=== PATIENT | male | born 1960 | race Caucasian/White ===

== ENCOUNTER → 2018-06-05 08:58 | Outpatient (CLI) | payer OTHER, SELFPAY ==
--- NOTE | 2018-06-05 | DI.MRI.S_ITS ---
PROCEDURE: MR LOWER LEG RT WO/W CON INDICATIONS: RIGHT CALF PAIN TECHNIQUE: Noncontrast coronal T1 spin echo and STIR, sagittal T1 spin echo with fat saturation and STIR, axial T1 spin echo and T2 fast spin echo with fat saturation. After the administration of contrast, axial/sagittal/coronal T1 spin echo with fat saturation through the right tibia/fibula. COMPARISON: None. FINDINGS: Image quality: Excellent. Bones: The visualized bone marrow demonstrates normal signal on all sequences. The overlying cortex appears intact. No abnormal intraosseous enhancement. Soft tissues: Anterior subcutaneous cellulitis and there is T2 hyperintensity and mild enhancement involving the anteromedial tibial diaphyseal periosteum. Hernandez cyst is seen in the popliteal fossa. There is also subfascial and inter-muscular edema/fluid inferiorly along with a multiloculated cystic appearing T2 hyperintense focus measuring 2.3 x 2.5 cm on axial image 17 series 7, seen within the medial gastrocnemius muscle. Unclear if this is in continuity with the Hernandez's cyst. There is surrounding rim enhancement which is similar appearance to the Hernandez's cyst Of note on large [id number] images, there are similar prominent presumed Hernandez's cyst and upper calf fluid collections on the left. IMPRESSION: Ill-defined, intramuscular fluid collection within the medial gastrocnemius muscle, with surrounding subfascial and inter-muscular edema. This could represent intramuscular abscess, versus hematoma (bland or infected). This may be in continuity with a Hernandez cyst seen in the popliteal fossa. Of note, there are similar-appearing rim enhancing fluid collections seen within the upper left calf on large [id number] images. Please correlate clinically. Anteromedial tibial periosteal edema and mild enhancement, with overlying subcutaneous cellulitis. This raises the possibility of barlow splints (anteromedial tibial stress syndrome). Please correlate with point tenderness. Dictated by: Michele Kelley M.D. on 06/05/2018 at 11:21 Approved by: Michele Kelley M.D. on 06/05/2018 at 11:31
== END ==
PROVIDERS: Visit Provider Nurse Practitioner
DX: M79.661 Pain in right lower leg (principal); M71.21 Synovial cyst of popliteal space [Baker], right knee; L03.115 Cellulitis of right lower limb
CPT/HCPCS: 73720

== ENCOUNTER → 2018-08-10 07:47 | Outpatient (CLI) | payer OTHER, SELFPAY ==
--- NOTE | 2018-08-10 | DI.MRI.S_ITS ---
PROCEDURE: MR KNEE LT WO CON INDICATIONS: BILATERAL KNEE PAIN TECHNIQUE: Noncontrast sagittal PD fast spin echo and T2 fast spin echo with fat saturation, sagittal 3-D FLASH with fat saturation; coronal T1 spin echo and PD fast spin echo with fat saturation, and axial PD fast spin echo with fat saturation through the knee. COMPARISON: [facility], MR, MR KNEE RT WO CON, 08/10/2018, 8:03. FINDINGS: Image quality: Excellent. Menisci: The medial and lateral menisci demonstrate normal morphology and internal signal. The meniscal root ligaments appear intact. Cruciate ligaments: The anterior and posterior cruciate ligaments appear intact. Medial structures: The medial collateral ligament appears intact. The posterior oblique ligament, semimembranosus tendon insertions, oblique popliteal ligament, and meniscocapsular junction appear intact. Visualized portions of the pes anserinus tendons appear normal. No abnormal bursal fluid. Lateral structures: The lateral collateral ligament, long and short heads of the biceps femoris tendon appear intact. The popliteus tendon appears normal; the popliteofibular ligament appears intact. The posterosuperior and anteroinferior popliteomeniscal fascicles appear intact. The arcuate and fabellofibular ligaments appear intact, on either side of the lateral inferior geniculate artery. Iliotibial band appears normal. Anterior structures: The quadriceps and patellar tendons appear intact. Patellar alignment is normal. No femoral trochlear dysplasia or ventral trochlear prominence. No edema in the infrapatellar fat pad. Bones and cartilage: Mild tricompartment osteoarthritis is seen most prominent in patellofemoral compartment. There is chondromalacia patella involving apex and lateral facet of patella cartilage. Articulating cartilage is a medial and lateral femoral tibial compartments are grossly intact. Joint space: There is small amount of joint fluid, no gross loose body. 2.5 x 1.4 x 4.7 cm irregular appearing popliteal cyst is seen with internal hypoechoic signal, likely representing a ruptured popliteal cyst. Normal appearing synovial plicae are incidentally noted. IMPRESSION: 1. 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 No fracture or dislocation. 2. Small amount of joint effusion. Irregular appearing popliteal cyst as above, likely represent a ruptured popliteal cyst. 3. No evidence of focal meniscal tear. Cruciate ligaments are intact. Dictated by: Yuniel Stone M.D. on 08/10/2018 at 12:18 Approved by: Yuniel Stone M.D. on 08/10/2018 at 12:24
--- NOTE | 2018-08-10 | DI.MRI.S_ITS ---
PROCEDURE: MR KNEE RT WO CON INDICATIONS: BILATERAL KNEE PAIN TECHNIQUE: Noncontrast sagittal PD fast spin echo and T2 fast spin echo with fat saturation, sagittal 3-D FLASH with fat saturation; coronal T1 spin echo and PD fast spin echo with fat saturation, and axial PD fast spin echo with fat saturation through the knee. COMPARISON: None. FINDINGS: Image quality: Excellent. Menisci: The medial and lateral menisci demonstrate normal morphology and internal signal. The meniscal root ligaments appear intact. Cruciate ligaments: The anterior and posterior cruciate ligaments appear intact. Medial structures: The medial collateral ligament appears intact. The posterior oblique ligament, semimembranosus tendon insertions, oblique popliteal ligament, and meniscocapsular junction appear intact. Visualized portions of the pes anserinus tendons appear normal. No abnormal bursal fluid. Lateral structures: The lateral collateral ligament, long and short heads of the biceps femoris tendon appear intact. The popliteus tendon appears normal; the popliteofibular ligament appears intact. The posterosuperior and anteroinferior popliteomeniscal fascicles appear intact. The arcuate and fabellofibular ligaments appear intact, on either side of the lateral inferior geniculate artery. Iliotibial band appears normal. Anterior structures: The quadriceps and patellar tendons appear intact. Patellar alignment is normal. No femoral trochlear dysplasia or ventral trochlear prominence. No edema in the infrapatellar fat pad. Bones and cartilage: There is mild tricompartment osteoarthritis. No marrow edema. No fracture or dislocation. Articulating cartilage is a medial and lateral femoral tibial compartments are grossly intact. Low-grade chondromalacia patella involving medial facet of patella cartilage is seen. Joint space: There is small to moderate amount of joint effusion. No gross loose body. 3.2 x 1.8 x 4.3 cm complex appearing popliteal cyst is noted with internal hypointense signal suggestive of hemorrhagic cyst. Normal appearing synovial plicae are incidentally noted. IMPRESSION: 1. Mild tricompartment osteoarthritis. Low-grade chondromalacia patella involving the medial facet of patella cartilage. No erythema. No fracture or dislocation. 2. Complex appearing popliteal cyst as described above with internal hypointense signal which may represent internal hemorrhage. 3. No evidence of focal meniscal tear. Cruciate ligaments are intact. Dictated by: Yuniel Stone M.D. on 08/10/2018 at 10:03 Approved by: Yuniel Stone M.D. on 08/10/2018 at 10:31
== END ==
PROVIDERS: Visit Provider Orthopaedic Surgery
DX: M17.0 Bilateral primary osteoarthritis of knee (principal); M25.562 Pain in left knee; M25.561 Pain in right knee; M22.42 Chondromalacia patellae, left knee; M25.462 Effusion, left knee; M22.41 Chondromalacia patellae, right knee; M71.22 Synovial cyst of popliteal space [Baker], left knee; M71.21 Synovial cyst of popliteal space [Baker], right knee
CPT/HCPCS: 73721

== ENCOUNTER → 2019-01-13 15:32 | Outpatient (CLI) | payer OTHER, SELFPAY ==
[2019-01-13 18:02] LABS: Hepatitis B Surface Antigen NEGATIVE s/c (NEGATIVE)
[2019-01-13 18:13] LABS: HIV 1 and 2 Antibody NEGATIVE (NEGATIVE)
[2019-01-15 14:29] LABS: Hepatitis B Core Antibody Nonreactive (Nonreactive)
[2019-01-15 15:18] LABS: RPR Screen Nonreactive (Nonreactive)
[2019-01-16 10:32] LABS: Mitogen-NIL 9.16 IU/mL; NIL 0.01 IU/mL; QuantiFERON TB NEGATIVE (Negative); TB1-NIL 0.01 IU/mL; TB2-NIL < 0.01 IU/mL
== END ==
PROVIDERS: Visit Provider Anesthesiology
DX: Z02.82 Encounter for adoption services (principal)
CPT/HCPCS: 36415; 86480; 86592; 86703; 86704; 87340

== ENCOUNTER 2019-07-08 09:49 | Emergency (ER) | payer OTHER, SELFPAY ==
[2019-07-08 10:00] VITALS: BP 154/100; PULSE 74; RESP 18; TEMP 36.5; O2SAT 97; BMI 31.6
--- NOTE | 2019-07-08 10:09 | DI.RAD.S_ITS ---
PROCEDURE: XR CHEST 2V INDICATIONS: cough, short of breath TECHNIQUE: 2 views of the chest were acquired. COMPARISON: None. FINDINGS: Surgical changes and devices: A cholecystectomy Lungs and pleura: An incomplete inspiratory result is noted, causing a crowded appearance to the lung markings. No focal infiltrates are seen. No pneumothorax or significant pleural effusions are seen. Mediastinum: Mediastinal contours are normal. Heart size is normal. Bones and chest wall: No suspicious bony abnormalities. Age-appropriate bony degenerative changes are seen. Soft tissues appear unremarkable. IMPRESSION: Low lung volumes. No acute cardiopulmonary process is seen. Dictated by: Talon Vincent M.D. on 07/08/2019 at 9:30 Approved by: Talon Vincent M.D. on 07/08/2019 at 9:30
[2019-07-08] MEDS: predniSONE 20 MG TABLET 60 MG PO (11:57)
[2019-07-08 12:05] VITALS: BP 152/100; PULSE 61; RESP 18; O2SAT 100
--- NOTE | 2019-07-16 14:13 | ED.URI ---
HPI - URI/Sore Throat General Chief Complaint: Upper Respiratory Symptoms Stated Complaint: thinks he has pneumonia Time Seen by Provider: 07/08/19 10:17 Source: patient Mode of arrival: Family Vehicle Limitations: no limitations History of Present Illness HPI Narrative: Patient comes emergency department complaining of cough and generalized weakness for the last 2 weeks, but worse for the past 3 days. Patient also has some sense of shortness of breath. He denies fevers or he is coughing mild amount of yellow sputum. Patient is not a smoker. He states that he was seen at his doctor's office a couple of days ago and has been taking a codeine-containing cough medication, but that he still has a cough and he is concerned that he may have developed pneumonia. No abdominal pain, nausea, or vomiting. no other complaints at this time. Related Data Previous Rx's Medication Instructions Recorded azithromycin [Zithromax TRI-LOGAN] 500 mg PO DAILY 3 Days tab 07/08/19 prednisone 60 mg PO DAILY #12 tab 07/08/19 Allergies Allergy/AdvReac Type Severity Reaction Status Date / Time INGREDIENT: NKDA - NO KNOWN Allergy Unknown Uncoded 07/08/19 10:08 DRUG ALLERGIES Review of Systems Constitutional Constitutional: Denies chills, Denies fatigue, Denies fever(s), Denies frequent falls, Denies lethargy and Denies weakness Eyes Eyes: Denies change in vision, Denies eye discharge, Denies irritation and Denies loss of vision ENT Ears, Nose, Mouth, and Throat: Denies change in voice, Denies dizziness, Denies neck pain, Denies sore throat and Denies throat swelling Cardiovascular Cardiovascular: Denies chest pain, Denies irregular heart rhythm, Denies lightheadedness, Denies palpitations, Reports dyspnea and Denies orthopnea Respiratory Respiratory: Reports cough, Reports dyspnea and Denies wheezing Gastrointestinal Gastrointestinal: Denies abdominal pain, Denies change in bowel habits, Denies diarrhea, Denies nausea and Denies vomiting Genitourinary Genitourinary: Denies hematuria, Denies flank pain, Denies urinary incontinence and Denies urinary urgency Musculoskeletal Musculoskeletal: Denies back pain, Denies muscle weakness, Denies neck pain, Denies numbness and Denies tingling Integumentary/Breasts Skin/Breast: Denies pruritus, Denies erythema, Denies rash and Denies wounds Neurologic Neurologic: Denies behavioral changes, Denies confusion, Denies dizziness, Denies frequent falls, Denies loss of vision, Denies numbness, Denies tingling and Denies weakness Psychiatric Psychiatric: Denies anxiety, Denies behavioral changes, Denies confusion, Denies depression, Denies homicidal ideation and Denies suicidal ideation Endocrine Endocrine: Denies fatigue, Denies flushing and Denies palpitations Hematologic/Lymphatic Hematologic/Lymphatic: Denies easy bruising Allergic/Immunologic Allergic/Immunologic: Denies urticaria, Denies throat swelling and Denies wheezing Patient History Medical History Healthy adult (Acute) Social History Smoking Status: Never smoker Smoking Status: Never smoker alcohol intake frequency: 3 or more drinks per day Substance Use Type: does not use Exam Initial Vital Signs Initial Vital Signs: Vital Signs Temperature 97.7 F 07/08/19 10:00 Pulse Rate 74 07/08/19 10:00 Respiratory Rate 18 07/08/19 10:00 Blood Pressure 154/100 H 07/08/19 10:00 Pulse Oximetry 97 07/08/19 10:00 Const General: cooperative and well developed Nutritional Appearance: well nourished Orientation: alert, awake, oriented x3 and not confused [facility] Head: normocephalic and atraumatic Ears: external ears normal Nose: external nose normal and No nasal discharge Face and sinus: face symmetric and No dry mucous membranes Mouth: oral mucosae normal and moist mucous membranes Teeth and gingiva: dentition normal Eyes General: appearance normal, both eyes and all related structures Eyelids: eyelids normal Conjunctivae: conjunctivae normal Sclera: sclerae normal Pupils: PERRL EOM: EOM intact bilaterally Neck Neck: normal visual inspection, trachea midline, No lymphadenopathy, No midline deformity and No JVD Lymphatic: No lymphedema Chest Chest: normal inspection of the chest Resp Effort & Inspection: normal respiratory effort, able to speak in complete sentences, no respiratory distress and no use of accessory muscles Auscultation: clear to auscultation bilaterally, no rales, no rhonchi and no wheezes Cardio Rate: regular rate Rhythm: regular rhythm Heart Sounds: no click, no gallops, no murmurs and no rubs Pulses: normal peripheral pulses GI Inspection: non-distended Palpation: soft, no hepatosplenomegaly, No guarding, No pulsatile mass and No tender Auscultation: normal bowel sounds Back/Spine/Pelvis Back: No CVA tenderness Cervical Spine: cervical ROM normal and No pain with cervical ROM Thoracic/Lumbar Spine: thoracic and lumbar spine normal to inspection Skin General: no rashes or lesions noted, No jaundice and No petechiae Neuro General: alert, oriented x3, gait normal and no focal motor deficits Speech: speech normal Extrem General: full ROM, no clubbing, cyanosis or edema, no pedal edema and no calf tenderness Psych Appearance: well kempt Mental Status: mental status grossly normal Attitude: cooperative Thought Content: normal and suicidality Judgment: judgment good Course Course Course Narrative: Patient is worked up with a chest x-ray, which was negative for pneumonia. We have discussed that the patient may have bronchitis, considering his productive cough which is worsening. He is placed on Zithromax and prednisone. We have discussed home management of the symptoms, as well as the usual indications for return. Orders Ordered: Discontinued Medications Prednisone (Deltasone) 60 mg PO NOW ONE Stop: 07/08/19 11:41 Last Admin: 07/08/19 11:57 Dose: 60 mg Documented by: [facility] - URI/Sore Throat Medical Records Attestation: I reviewed the patient's medical records. Imaging Data Chest x-ray: Radiologist's impression: PROCEDURE: XR CHEST 2V INDICATIONS: cough, short of breath TECHNIQUE: 2 views of the chest were acquired. COMPARISON: None. FINDINGS: Surgical changes and devices: A cholecystectomy Lungs and pleura: An incomplete inspiratory result is noted, causing a crowded appearance to the lung markings. No focal infiltrates are seen. No pneumothorax or significant pleural effusions are seen. Mediastinum: Mediastinal contours are normal. Heart size is normal. Bones and chest wall: No suspicious bony abnormalities. Age-appropriate bony degenerative changes are seen. Soft tissues appear unremarkable. IMPRESSION: Low lung volumes. No acute cardiopulmonary process is seen. Dictated by: Talon Vincent M.D. on 07/08/2019 at 9:30 Approved by: Talon Vincent M.D. on 07/08/2019 at 9:30 Discharge Plan Departure Patient Disposition: Home Clinical Impression: Bronchitis Discharge Date/Time: 07/08/19 12:07 Instructions: DI for Acute Bronchitis Activity Restrictions/Additional Instructions: Your chest x-ray does not show pneumonia. You may have a viral or a bacterial bronchitis that is causing your symptoms do worsen. Please take the steroid and the antibiotic, as directed. You may also continue to take the liquid codeine as needed. Please follow up with your primary care physician if you're not feeling better in the next week. Prescriptions: New prednisone 20 mg tablet 60 mg PO DAILY Qty: 12 RF: 0 azithromycin [Zithromax TRI-LOGAN] 500 mg tablet 500 mg PO DAILY 3 Days RF: 0
== END 2019-07-08 12:07 | disposition home or self-care (01) ==
PROVIDERS: Emergency Provider Emergency Medicine
DX: J40 Bronchitis, not specified as acute or chronic (principal)
CPT/HCPCS: 71046; 99282; 99283

== ENCOUNTER 2019-09-21 20:13 | Emergency (ER) | payer OTHER, SELFPAY ==
[2019-09-21 20:13] VITALS: BP 205/103; PULSE 50; RESP 18; O2SAT 94
--- NOTE | 2019-09-21 20:16 | DI.CT.S_ITS ---
PROCEDURE: CT KIDNEY URETER BLADDER (KUB) INDICATIONS: severe RLQ / flank pain TECHNIQUE: Noncontrast 5 mm thick sections acquired from the diaphragms to the symphysis. 5 mm thick coronal and sagittal reformats were then performed. For radiation dose reduction, the following was used: automated exposure control, adjustment of mA and/or kV according to patient size. COMPARISON: None. FINDINGS: Image quality: Excellent. Lung bases: Lung bases are clear. Heart size is normal. Small amount of fluid in the distal esophagus. Urinary system: Both kidneys are normal in size. No kidney stones. No hydronephrosis or perinephric fat stranding. Both ureters appear non-dilated throughout their expected courses. Bladder wall thickness is normal; no calcified bladder stones. Other solid organs: Liver is normal in size. Gallbladder is surgically absent.. Pancreas is normal in contours. Spleen is normal in size. No adrenal nodules. Peritoneum and bowel: Unenhanced bowel loops demonstrate normal wall thickness and caliber. A very short appendix appears normal. There is an increased quantity of stool in the proximal colon and occasional diverticulosis throughout the distal colon. No free fluid or air. Nodes and vessels: No retroperitoneal or mesenteric adenopathy by size criteria. Aorta and inferior vena cava are normal in caliber. Abdominal wall: No ventral hernias. Pelvis: No free pelvic fluid. No inguinal hernias or adenopathy. Mild prostatomegaly. Bones: No suspicious bony lesions. No vertebral body compression fractures. IMPRESSION: 1. No CT evidence of urinary calcification or obstructive uropathy. 2. Normal appendix. 3. Post cholecystectomy. 4. Mildly increased quantity of proximal colon stool. 5. Mild prostatomegaly. Dictated by: Portia Roach M.D. on 09/21/2019 at 22:11 Approved by: Portia Roach M.D. on 09/21/2019 at 22:17
[2019-09-21] MEDS: KETOROLAC 60 MG/2 ML VIAL 15 MG IV (20:31)
[2019-09-21] MEDS: ONDANSETRON 4 MG/2 ML INJ IV (20:31)
[2019-09-21] MEDS: SODIUM CHLORIDE 0.9% 1,000 ML 1000 ML IV (20:32)
[2019-09-21 20:50] LABS: Add Manual Diff / Slide Review NO; Basophils Absolute Auto 100 /uL (0-100); Basophils Percent Auto 0.6 % (0-2); Eosinophils Absolute Auto 200 /uL (0-450); Eosinophils Percent Auto 2.2 % (2-4); Hematocrit 41.9 % (41-53); Lymphocytes Absolute Auto 1400 /uL (1100-4500); Lymphocytes Percent Auto 13.7 % (25-40); Mean Corpuscular HGB Conc 35.9 % (30-36); Mean Corpuscular Hemoglobin 31.7 PG (26-34); Mean Corpuscular Volume 88.5 fL (80-100); Monocytes Absolute Auto 600 /uL (0-900); Monocytes Percent Auto 5.5 % (3-14); Neutrophils Absolute Auto 7900 /uL (1500-7000); Platelet Count 193 X10^3/uL (150-400); Red Blood Cell Count 4.73 X10^6/uL (4.5-5.9); Red Cell Distribution Width 13.4 % (11.6-14.8); White Blood Cell Count 10.2 X10^3/uL (4.5-11.0)
[2019-09-21 20:56] LABS: BUN Creatinine Ratio 10.8 (6-22); Blood Urea Nitrogen 13 mg/dL (9-20); Calcium 8.7 mg/dL (8.4-10.2); Carbon Dioxide 27 mmol/L (22-32); Chloride 101 mmol/L (98-107); Estimated Glomerular Filt Rate > 60.0 mL/min (>60); Glucose 133 mg/dL (70-100); HEMOLYSIS < 15 (0-50); Potassium 3.9 mmol/L (3.4-5.1); Sodium 137 mmol/L (137-145)
[2019-09-21] MEDS: LIDOCAINE 2% 5.6 ML in SODIUM CHLORIDE 0.9% 50 ML 333.6 ML IV (21:18)
[2019-09-21 21:47] VITALS: BP 176/97; PULSE 50; RESP 16; O2SAT 100
[2019-09-21] MEDS: HYDROMORPHONE 1 MG INJ IV (22:08)
[2019-09-21 22:27] VITALS: TEMP 36.9
--- NOTE | 2019-09-21 22:54 | ED_ITS ---
HPI - Back Pain/Injury General Chief Complaint: Back Pain/Injury Stated Complaint: R groin pain Time Seen by Provider: 09/21/19 20:13 Source: patient, family and EMS Mode of arrival: EMS Limitations: no limitations History of Present Illness HPI Narrative: 59M non smoker with noncontributory medical history presents by EMS for evaluation of severe right lower back and groin pain over the day. He states his pain is largely worse with motion and improves with rest but states that it has episodes in which it flares up without any obvious provocation. Patient denies any obvious injury, dysuria, frequency or urgency. He denies any radiation into his leg nor any numbness, tingling or weakness. He states that [place] the weekend he was jogging and felt some pain in his left lower back which radiates down his left leg that seems to be largely better now. This pain today is in a different region and feels different than what happened on Friday. Patient had IV placed and was given fentanyl prior to his arrival MD Complaint: back pain Onset (ago): hour(s) Duration: intermittent Similar Symptoms Previously: No Location: lumbar spine and right flank Severity: severe Quality: burning and sharp Relieving factors: immobilization Exacerbating factors: movement Related Data Previous Rx's Medication Instructions Recorded prednisone 60 mg PO DAILY #12 tab 07/08/19 diazepam [Valium] 5 mg PO BID-QID PRN #10 tab 09/21/19 hydrocodone-acetaminophen 1 tab PO Q4-6H PRN #10 tab 09/21/19 ketorolac 10 mg PO Q6H PRN #14 tab 09/21/19 Allergies Allergy/AdvReac Type Severity Reaction Status Date / Time INGREDIENT: NKDA - NO KNOWN Allergy Unknown Uncoded 07/08/19 10:08 DRUG ALLERGIES Review of Systems Constitutional Constitutional: Denies chills, Denies fatigue, Denies fever(s), Denies frequent falls, Denies lethargy and Denies weakness Eyes Eyes: Denies change in vision, Denies eye discharge, Denies irritation and Denies loss of vision ENT Ears, Nose, Mouth, and Throat: Denies change in voice, Denies dizziness, Denies neck pain, Denies sore throat and Denies throat swelling Cardiovascular Cardiovascular: Denies chest pain, Denies irregular heart rhythm, Denies lightheadedness, Denies palpitations, Denies dyspnea, Denies dyspnea on exertion and Denies orthopnea Respiratory Respiratory: Denies cough, Denies dyspnea, Denies dyspnea on exertion and Denies wheezing Gastrointestinal Gastrointestinal: Denies abdominal pain, Denies change in bowel habits, Denies diarrhea, Denies nausea and Denies vomiting Genitourinary Genitourinary: Denies hematuria, Denies flank pain, Denies urinary incontinence and Denies urinary urgency Musculoskeletal Musculoskeletal: Reports back pain, Denies muscle weakness, Denies neck pain, Denies numbness and Denies tingling Integumentary/Breasts Skin/Breast: Denies pruritus, Denies erythema, Denies rash and Denies wounds Neurologic Neurologic: Denies behavioral changes, Denies confusion, Denies dizziness, Denies frequent falls, Denies loss of vision, Denies numbness, Denies tingling and Denies weakness Psychiatric Psychiatric: Denies anxiety, Denies behavioral changes, Denies confusion, Denies depression, Denies homicidal ideation and Denies suicidal ideation Endocrine Endocrine: Denies fatigue, Denies flushing and Denies palpitations Hematologic/Lymphatic Hematologic/Lymphatic: Denies easy bruising Allergic/Immunologic Allergic/Immunologic: Denies urticaria, Denies throat swelling and Denies wheezing Patient History Medical History Healthy adult (Acute) Social History Smoking Status: Never smoker Smoking Status: Never smoker alcohol intake frequency: 0-2 drinks per day Substance Use Type: does not use Exam Narrative Exam Narrative: GENERAL: [59] year old patient appears stated age. Well- nourished, well-developed patient, in obvious pain HEAD: Atraumatic. Normocephalic. EYES: Pupils equal round and reactive. Extraocular motions intact. No scleral icterus. No injection or drainage. ENT: Nose without bleeding, purulent drainage. Throat without erythema, tonsillar hypertrophy or exudate. Airway patent. NECK: Trachea midline. Non tender CARDIOVASCULAR: Regular rate and rhythm without murmurs, gallops, or rubs. RESPIRATORY: Clear to auscultation. Breath sounds equal bilaterally. No wheezes, rales, or rhonchi. GASTROINTESTINAL: Abdomen soft, non-tender, nondistended. EXTREMITIES: No edema or joint tenderness. BACK: churn tender but free of any obvious external abnormalities. Patient exam notes decreased range of motion and muscle spasm, but no CVA tenderness, or vertebral point tenderness. There are no symptoms of cauda equina such as saddle anesthesia, and decreased reflexes, decreased sensation or strength. NEURO: AOx3. SKIN: No rash or erythema of visible areas Initial Vital Signs Initial Vital Signs: Vital Signs Pulse Rate 50 L 09/21/19 20:13 Respiratory Rate 18 09/21/19 20:13 Blood Pressure 205/103 H 09/21/19 20:13 Pulse Oximetry 94 09/21/19 20:13 Course Orders Ordered: ED Orders 09/21/19 20:16 CT kidney ureter bladder (KUB) Stat 09/21/19 20:37 Basic Metabolic Panel Stat Complete Blood Count AUTO DIFF Stat Discontinued Medications Hydrocodone Bitart/Acetaminophen (Vicodin 5/325 Prepack) 1 bottle MISC SEEINSTR ONE Stop: 09/21/19 23:22 Last Admin: 09/21/19 23:34 Dose: 1 bottle Documented by: LINDSEY Hydromorphone HCl (Dilaudid) 1 mg IV NOW ONE Stop: 09/21/19 22:04 Last Admin: 09/21/19 22:08 Dose: 1 mg Documented by: LINDSEY Sodium Chloride (Normal Saline 0.9%) 1,000 mls @ 1,000 mls/hr IV BOLUS ONE Stop: 09/21/19 21:15 Last Infusion: 09/21/19 23:10 Dose: 0 mls/hr Documented by: Admin: 09/21/19 20:32 Dose: 1,000 mls/hr Documented by: LINDSEY Lidocaine HCl 5.6 ml/ Sodium (Chloride) 55.6 mls @ 333.6 mls/hr IV NOW ONE Stop: 09/21/19 21:13 Last Infusion: 09/21/19 21:39 Dose: 0 mls/hr Documented by: Admin: 09/21/19 21:18 Dose: 333.6 mls/hr Documented by: LINDSEY Ketorolac Tromethamine (Toradol) 15 mg IV NOW ONE Stop: 09/21/19 20:17 Last Admin: 09/21/19 20:31 Dose: 15 mg Documented by: LINDSEY Ondansetron HCl (Zofran) 4 mg IV Q4HR PRN PRN Reason: Nausea And Vomiting Last Admin: 09/21/19 20:31 Dose: 4 mg Documented by: LINDSEY Ondansetron HCl (Zofran Odt Prepack) 1 bottle MISC SEEINSTR ONE Stop: 09/21/19 23:22 Last Admin: 09/21/19 23:34 Dose: 1 bottle Documented by: LINDSEY Vital Signs Vital signs: Vital Signs - 8 hr 09/21/19 20:13 09/21/19 21:47 09/21/19 22:27 Temperature 98.4 F Pulse Rate 50 L 50 L Respiratory Rate 18 16 Blood Pressure 205/103 H Blood Pressure [Left Arm] 176/97 H Pulse Oximetry 94 100 09/21/19 23:37 Temperature 97.7 F Pulse Rate 69 Respiratory Rate 18 Blood Pressure Blood Pressure [Left Arm] 160/66 H Pulse Oximetry 97 MDM - Back Pain/Injury Lab Data Result diagrams: 09/21/19 20:37 09/21/19 20:37 Labs: Lab Results 09/21/19 09/21/19 Range/Units 20:37 20:37 WBC 10.2 (4.5-11.0) X10^3/uL RBC 4.73 (4.5-5.9) X10^6/uL Hgb 15.0 (13.5-17.5) g/dL Hct 41.9 (41-53) % MCV 88.5 (80-100) fL MCH 31.7 (26-34) PG MCHC 35.9 (30-36) % RDW 13.4 (11.6-14.8) % Plt Count 193 (150-400) X10^3/uL Neut % (Auto) 78.0 H (50-75) % Lymph % (Auto) 13.7 L (25-40) % [place] % (Auto) 5.5 (3-14) % Eos % (Auto) 2.2 (2-4) % Baso % (Auto) 0.6 (0-2) % Neut # (Auto) 7900 H (5499-7254) /uL Lymph # (Auto) 1400 (0734-9949) /uL [place] # (Auto) 600 (0-900) /uL Eos # (Auto) 200 (0-450) /uL Baso # (Auto) 100 (0-100) /uL Sodium 137 (137-145) mmol/L Potassium 3.9 (3.4-5.1) mmol/L Chloride 101 (98-107) mmol/L Carbon Dioxide 27 (22-32) mmol/L BUN 13 (9-20) mg/dL Creatinine 1.20 (0.66-1.25) mg/dL Estimated GFR > 60.0 (>60) mL/min BUN/Creatinine Ratio 10.8 (6-22) Glucose 133 H (70-100) mg/dL Calcium 8.7 (8.4-10.2) mg/dL Urine Dip Bedside Urine Glucose Negative Bedside Urine Bilirubin - Negative Bedside Urine Ketone +/- 5 Urine Specific Daisy 1.025 Bedside Urine Occult Blood - Negative Bedside Urine pH 6.0 Bedside Urine Protein +/- 15 Bedside Urine Urobilinogen - Negative Bedside Urine Nitrite - Negative Bedside Urine Leukocytes - Negative Esterase Imaging Data CT scan - abdomen/pelvis: Radiologist's Impression: Chart Viewer Diagnostics DATE TYPE STATUS AUTHOR Hx 09/21/19 20:16 Portia Roach 07/08/19 10:09 Talon Vincent 08/10/18 00:00 Yuniel Stone 08/10/18 00:00 Yuniel Stone 06/05/18 00:00 Michele Kelley James A 59, 1960 [facility] ED 74.843kg Back Pain/Injury Search Chart No Data to Display ONSET 09/21/19 23:37 Adalberto Keyes 59 M 1960 [place] [address] CT Scan Report Signed Patient: KeyesAdalberto mclaughlin [facility]#: [id number] : 2Acct:[id number] Age/Sex: 59 / MDate of Service: 09/21/19 Loc: ED Accession Number: [id number] Procedure: CT kidney ureter bladder (KUB) Ordering Provider: Ameya Marr D.O. PROCEDURE: CT KIDNEY URETER BLADDER (KUB) INDICATIONS: severe RLQ / flank pain TECHNIQUE: Noncontrast 5 mm thick sections acquired from the diaphragms to the symphysis. 5 mm thick coronal and sagittal reformats were then performed. For radiation dose reduction, the following was used: automated exposure control, adjustment of mA and/or kV according to patient size. COMPARISON: None. FINDINGS: Image quality: Excellent. Lung bases: Lung bases are clear. Heart size is normal. Small amount of fluid in the distal esophagus. Urinary system: Both kidneys are normal in size. No kidney stones. No hydronephrosis or perinephric fat stranding. Both ureters appear non-dilated throughout their expected courses. Bladder wall thickness is normal; no calcified bladder stones. Other solid organs: Liver is normal in size. Gallbladder is surgically absent.. Pancreas is normal in contours. Spleen is normal in size. No adrenal nodules. Peritoneum and bowel: Unenhanced bowel loops demonstrate normal wall thickness and caliber. A very short appendix appears normal. There is an increased quantity of stool in the proximal colon and occasional diverticulosis throughout the distal colon. No free fluid or air. Nodes and vessels: No retroperitoneal or mesenteric adenopathy by size criteria. Aorta and inferior vena cava are normal in caliber. Abdominal wall: No ventral hernias. Pelvis: No free pelvic fluid. No inguinal hernias or adenopathy. Mild prostatomegaly. Bones: No suspicious bony lesions. No vertebral body compression fractures. IMPRESSION: 1. No CT evidence of urinary calcification or obstructive uropathy. 2. Normal appendix. 3. Post cholecystectomy. 4. Mildly increased quantity of proximal colon stool. 5. Mild prostatomegaly. Dictated by: Portia Roach M.D. on 09/21/2019 at 22:11 Approved by: Portia Roach M.D. on 09/21/2019 at 22:17 [facility] Narrative Medical decision making narrative: 59-year-old male with obvious significant right flank and right lower quadrant pain. It largely is provoked by motion and improved by rest but there are certainly colicky elements to his description. The possibility of kidney stone was high on the initial differential but no blood noted in urine and CT does not show an obvious stone but only increased stool. Multiple etiologies considered but the colicky nature but also reproducible with motion raises the question of a musculoskeletal abnormality presenting as a consequence of the injury to his left lower back and a changed and gait and ambulation. His appendix was viewed and was normal on imaging. Labs are very reassuring. Patient responded well to above-stated medications. He has been given return precautions and both he and had questions answered to their apparent satisfaction Discharge Plan Departure Patient Disposition: Home Clinical Impression: Abdominal pain, acute, right lower quadrant Discharge Date/Time: 09/21/19 23:58 Instructions: DI for Abdominal Pain-Adult Activity Restrictions/Additional Instructions: *You have been diagnosed with [ right lower quadrant pain, unclear cause ] *What to do: *Take medications as directed *Follow up with your primary care provider in 2-3 days, call for an appointment. Let them know you were seen in the Emergency Department and that we ask that you be seen in follow up *Return to ER if you should have any new, worsening or concerning symptoms You have been prescribed narcotic medications. While on these medications you cannot drive or operate heavy machinery. Additionally you cannot sign legal documents or perform any duties such as this. 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 Please understand that we cannot provide further refills of narcotics or controlled substances through the ED and your pain management will need to be through your Primary Care Provider Prescriptions: New hydrocodone-acetaminophen 5-325 mg tablet 1 tab PO Q4-6H PRN (Reason: pain) Qty: 10 RF: 0 ketorolac 10 mg tablet 10 mg PO Q6H PRN (Reason: pain) Qty: 14 RF: 0 diazepam [Valium] 5 mg tablet 5 mg PO BID-QID PRN (Reason: muscle spasm) Qty: 10 RF: 0 No Action prednisone 20 mg tablet 60 mg PO DAILY Qty: 12 RF: 0 Referrals: [facility] [Outside]
[2019-09-21] MEDS: ONDANSETRON 4 MG ODT PREPACK 1 BOTTLE MISC (23:34)
[2019-09-21] MEDS: HYDROCODONE/ACET 5/325 PREPACK 1 BOTTLE MISC (23:34)
[2019-09-21 23:37] VITALS: BP 160/66; PULSE 69; RESP 18; TEMP 36.5; O2SAT 97
== END 2019-09-21 23:58 | disposition home or self-care (01) ==
PROVIDERS: Emergency Provider Emergency Medicine
DX: R10.31 Right lower quadrant pain (principal)
CPT/HCPCS: 36415; 74176; 80048; 81003; 85025; 96361; 96365; 96375; 99284; J1170; J1885; J2405

== ENCOUNTER 2020-06-14 21:07 | Emergency (ER) | payer OTHER, SELFPAY ==
[2020-06-14 21:11] VITALS: BP 172/88; PULSE 64; RESP 18; TEMP 36.6; O2SAT 98; BMI 28.8
--- NOTE | 2020-06-14 21:20 | DI.RAD.S_ITS ---
PROCEDURE: XR HAND LT MIN 3V INDICATIONS: laceration from wine bottle to left palm TECHNIQUE: 3 views of the hand(s) acquired. COMPARISON: None. FINDINGS: Bones: No fractures or dislocations. Carpal bones are normally aligned. No suspicious bony lesions. Soft tissues: No suspicious soft tissue calcifications. Soft tissue swelling is noted at the thenar eminence. No unexpected radiopaque foreign body. IMPRESSION: Soft tissue swelling. No underlying bony abnormality. No unexpected radiopaque foreign body. Dictated by: Ai Rodríguez M.D. on 06/14/2020 at 21:58 Approved by: Ai Rodríguez M.D. on 06/14/2020 at 21:59
--- NOTE | 2020-06-15 08:09 | ED.WOUNDLAC ---
HPI - Wound/Laceration General Chief Complaint: Wound/Laceration Stated Complaint: cut left hand Source: patient Mode of arrival: Ambulatory Limitations: no limitations Related Data Previous Rx's Medication Instructions Recorded prednisone 60 mg PO DAILY #12 tab 07/08/19 diazepam [Valium] 5 mg PO BID-QID PRN #10 tab 09/21/19 hydrocodone-acetaminophen 1 tab PO Q4-6H PRN #10 tab 09/21/19 ketorolac 10 mg PO Q6H PRN #14 tab 09/21/19 Allergies Allergy/AdvReac Type Severity Reaction Status Date / Time INGREDIENT: NKDA - NO KNOWN Allergy Unknown Uncoded 07/08/19 10:08 DRUG ALLERGIES Patient History Medical History (Updated 06/14/20 @ 22:55 by Dawna Artis RN) Healthy adult (Acute) Social History Smoking Status: Never smoker Smoking Status: Never smoker alcohol intake frequency: 0-2 drinks per day Substance Use Type: does not use Exam Initial Vital Signs Initial Vital Signs: Vital Signs Temperature 97.9 F 06/14/20 21:11 Pulse Rate 64 06/14/20 21:11 Respiratory Rate 18 06/14/20 21:11 Blood Pressure 172/88 H 06/14/20 21:11 Pulse Oximetry 98 06/14/20 21:11 Discharge Plan Departure Patient Disposition: Left Without Being Seen Clinical Impression: Patient left without being seen Discharge Date/Time: 06/14/20 22:55
== END 2020-06-14 22:55 | disposition left against medical advice (07) ==
PROVIDERS: Emergency Provider Emergency Medicine
DX: S61.412A Laceration without foreign body of left hand, initial encounter (principal); W25.XXXA Contact with sharp glass, initial encounter
CPT/HCPCS: 73130; 99283

== ENCOUNTER 2021-04-23 01:44 | Emergency (ER) | payer OTHER, SELFPAY ==
[2021-04-23 02:13] VITALS: BP 172/71; PULSE 65; RESP 18; TEMP 36.6; O2SAT 98; BMI 30.1
--- NOTE | 2021-04-23 03:28 | ED_ITS ---
HPI - Allergic Reaction General Chief complaint: Allergic Reaction Stated complaint: all over rash Time Seen by Provider: 04/23/21 03:26 Source: patient Mode of arrival: Ambulatory Limitations: no limitations History of Present Illness HPI narrative: Patient is a 61-year-old male who presents with rash ongoing for the last 4 days. He has a does have a history of allergic reaction to msg usually starts with a little tingling behind the ear the eye that is TAVR progressed and anything like this. He did have some Sinhala food a few days ago and then the rash started. It is now all over his trunk and extremities. He has been taking Benadryl for the itching is but is not helping. He now feels like he is having little bit difficulty swallowing. No previous anaphylaxis to have anything. He has no new soaps lotions or other triggers Related Data Previous Rx's Medication Instructions Recorded prednisone 20 mg tablet 60 mg PO DAILY #12 tab 07/08/19 diazepam 5 mg tablet (Valium) 5 mg PO BID-QID PRN #10 tab 09/21/19 hydrocodone 5 mg-acetaminophen 325 1 tab PO Q4-6H PRN #10 tab 09/21/19 mg tablet ketorolac 10 mg tablet 10 mg PO Q6H PRN #14 tab 09/21/19 prednisone 20 mg tablet 40 mg PO DAILY #10 tab 04/23/21 Allergies Allergy/AdvReac Type Severity Reaction Status Date / Time No Known Drug Allergies Allergy Verified 04/23/21 02:13 Review of Systems Review of Systems Narrative: GENERAL: Denies chills, fatigue, malaise, fever, sweats, travel HEENT: Denies sinus pain, ear pain, sore throat, difficulty swallowing, neck pain RESPIRATORY: Denies dyspnea, cough, wheezing, hemoptysis, sputum. CARDIOVASCULAR: Denies chest pain, palpitations, orthopnea, edema GASTROINTESTINAL: Denies nausea, vomiting, abdominal pain, diarrhea, constipation, melena. : Denies dysuria, frequency, incontinence, hematuria, urinary retention, flank pain. MUSCULOSKELETAL: Denies weakness, joint pain, or bony pain SKIN: See HPI NEUROLOGIC: Denies weakness, dizziness, headache, numbness, change in speech, confusion PSYCHIATRIC: No concerning psychosocial issues. 12 point review of systems is negative except for those stated above and HPI Patient History Medical History (Updated 09/13/21 @ 03:34 by Enma Natarajan DO) Healthy adult Social History Smoking Status: Never smoker Smoking Status: Never smoker alcohol intake frequency: 0-2 drinks per day Substance Use Type: does not use Exam Initial Vital Signs Initial Vital Signs: Vital Signs Temperature 97.8 F 04/23/21 02:13 Pulse Rate 65 04/23/21 02:13 Respiratory Rate 18 04/23/21 02:13 Blood Pressure 172/71 H 04/23/21 02:13 Pulse Oximetry 98 04/23/21 02:13 GENERAL: Well-appearing, well-nourished and in no acute distress. HENT: Managing secretions, no obvious tongue or lip swelling CARDIOVASCULAR: peripheral pulses in tact, cap refill <2 sec RESPIRATORY: No respiratory distress, speaks in full sentences without difficulty EXTREMITIES: Normal range of motion, no clubbing or edema. Neurovascularly intact NEUROLOGICAL: Cranial nerves II through XII grossly intact. Normal gait and speech. SKIN: Urticaria and hives all over trunk and extremities Course Orders Ordered: Discontinued Medications Prednisone (Prednisone 20 Mg Tablet) 60 mg PO NOW ONE Stop: 04/23/21 03:27 Last Admin: 04/23/21 03:32 Dose: 60 mg Documented by: GENI Vital Signs Vital signs: Vital Signs - 8 hr 04/23/21 02:13 Temperature 97.8 F Pulse Rate 65 Respiratory Rate 18 Blood Pressure 172/71 H Pulse Oximetry 98 Discharge Plan Departure Patient Disposition: Home Clinical Impression: Urticaria Instructions: DI for Hives Activity Restrictions/Additional Instructions: *You have been diagnosed with allergic reaction *What to do: At this time as we do not what you are allergic to. You may require future allergy testing if this continues or you have recurrent episodes. *Continue to take medications as directed--> BUT DO AGREE IN [place] Prednisone 40 mg once daily for 5 days start FridayApril 24 Benadryl 25-50 mg every 6 hours if needed for severe itching *Follow up with your primary care provider in 2-3 days *Return to ER if you should have increased difficulty breathing, worsening rash, fever any new, worsening or concerning symptoms Prescriptions: New prednisone 20 mg tablet 40 mg PO DAILY Qty: 10 RF: 0 No Action prednisone 20 mg tablet 60 mg PO DAILY Qty: 12 RF: 0 hydrocodone-acetaminophen 5-325 mg tablet 1 tab PO Q4-6H PRN (Reason: pain) Qty: 10 RF: 0 ketorolac 10 mg tablet 10 mg PO Q6H PRN (Reason: pain) Qty: 14 RF: 0 diazepam [Valium] 5 mg tablet 5 mg PO BID-QID PRN (Reason: muscle spasm) Qty: 10 RF: 0
[2021-04-23] MEDS: predniSONE 20 MG TABLET 60 MG PO (03:32)
== END 2021-04-23 03:43 | disposition home or self-care (01) ==
PROVIDERS: Emergency Provider Emergency Medicine
DX: L50.9 Urticaria, unspecified (principal); T78.40XA Allergy, unspecified, initial encounter
CPT/HCPCS: 99283

== ENCOUNTER → 2021-05-02 12:02 | Outpatient (CLI) | payer OTHER, SELFPAY ==
[2021-05-04 16:41] LABS: ANA Screen, IFA Negative (.)
== END ==
PROVIDERS: PCP Physician Assistant Medical; Referring Provider Physician Assistant Medical; Visit Provider Physician Assistant Medical
DX: L30.9 Dermatitis, unspecified (principal)
CPT/HCPCS: 36415; 86038

== ENCOUNTER → 2021-05-15 15:47 | Outpatient (CLI) | payer OTHER, SELFPAY ==
[2021-05-15 16:28] LABS: Alanine Aminotransferase 35 IU/L (<50); Albumin 4.3 g/dL (3.5-5.0); Albumin Globulin Ratio 1.4 (1.0-2.8); Alkaline Phosphatase 52 U/L (38-126); Aspartate Aminotransferase 30 IU/L (17-59); BUN Creatinine Ratio 13.3 (6-22); Bilirubin Total 0.5 mg/dL (0.2-1.3); Blood Urea Nitrogen 14 mg/dL (9-20); Carbon Dioxide 28 mmol/L (22-32); Chloride 103 mmol/L (98-107); Cholesterol 218 mg/dL (140-199); Estimated Glomerular Filt Rate > 60.0 mL/min (>60); Glucose 117 mg/dL (70-100); HDL Cholesterol 41 mg/dL (40-60); HEMOLYSIS 15 (0-50); LDL Cholesterol Calculated 115 mg/dL (<100); Potassium 3.8 mmol/L (3.4-5.1); Sodium 138 mmol/L (137-145); Total Protein 7.3 g/dL (6.3-8.2); Triglycerides 308 mg/dL (35-150); VLDL Cholesterol Calculated 62 mg/dL (2-30)
== END ==
PROVIDERS: PCP Physician Assistant Medical; Referring Provider Physician Assistant; Visit Provider Physician Assistant
DX: L30.9 Dermatitis, unspecified (principal)
CPT/HCPCS: 36415; 80053; 80061

== ENCOUNTER 2021-08-17 16:52 | Emergency (ER) | payer OTHER, SELFPAY ==
[2021-08-17 17:16] VITALS: BP 153/91; PULSE 56; RESP 14; TEMP 36.4; O2SAT 100; BMI 29.0
[2021-08-17 18:32] LABS: Add Manual Diff / Slide Review NO; Basophils Absolute Auto 100 /uL (0-100); Basophils Percent Auto 1.2 % (0-2); Eosinophils Absolute Auto 500 /uL (0-450); Eosinophils Percent Auto 6.8 % (2-4); Hematocrit 42.4 % (41-53); Hemoglobin 15.1 g/dL (13.5-17.5); Lymphocytes Absolute Auto 1700 /uL (1100-4500); Lymphocytes Percent Auto 23.7 % (25-40); Mean Corpuscular HGB Conc 35.6 % (30-36); Mean Corpuscular Hemoglobin 30.8 PG (26-34); Mean Corpuscular Volume 86.4 fL (80-100); Monocytes Absolute Auto 400 /uL (0-900); Monocytes Percent Auto 5.9 % (3-14); Neutrophils Absolute Auto 4600 /uL (1500-7000); Neutrophils Percent Auto 62.4 % (50-75); Platelet Count 210 X10^3/uL (150-400); Red Blood Cell Count 4.91 X10^6/uL (4.5-5.9); Red Cell Distribution Width 13.5 % (11.6-14.8); White Blood Cell Count 7.3 X10^3/uL (4.5-11.0)
[2021-08-17 18:42] LABS: Lactate (Lactic Acid) 1.5 mmol/L (0.7-2.1)
[2021-08-17 18:43] LABS: Alanine Aminotransferase 28 IU/L (<50); Albumin 4.2 g/dL (3.5-5.0); Albumin Globulin Ratio 1.2 (1.0-2.8); Alkaline Phosphatase 53 U/L (38-126); Aspartate Aminotransferase 26 IU/L (17-59); BUN Creatinine Ratio 16.2 (6-22); Bilirubin Total 0.4 mg/dL (0.2-1.3); Blood Urea Nitrogen 17 mg/dL (9-20); Carbon Dioxide 26 mmol/L (22-32); Chloride 105 mmol/L (98-107); Estimated Glomerular Filt Rate > 60.0 mL/min (>60); Globulin 3.4 g/dL (1.7-4.1); Glucose 134 mg/dL (70-100); HEMOLYSIS < 15 (0-50); Potassium 3.7 mmol/L (3.4-5.1); Sodium 136 mmol/L (137-145); Total Protein 7.6 g/dL (6.3-8.2)
--- NOTE | 2021-08-17 20:06 | ED.SKABFB ---
HPI - Skin/Abscess/Foreign Bdy General Chief complaint: Skin/Abscess/Foreign Body Stated complaint: Infection in Lt Arm Time Seen by Provider: 08/17/21 20:02 Source: patient Mode of arrival: Ambulatory Limitations: no limitations History of Present Illness HPI narrative: Patient is a 61-year-old healthy male who presents with left arm swelling pain and redness. Last 2 days an area of redness ronak, he has had increased swelling over his arm. His white rate but this. He has not had any fever or chills. He is able to flex and extend his elbow without any pain and move all his fingers although the area is right around his olecranon. Related Data Previous Rx's Medication Instructions Recorded prednisone 20 mg tablet 60 mg PO DAILY #12 tab 07/08/19 diazepam 5 mg tablet (Valium) 5 mg PO BID-QID PRN #10 tab 09/21/19 hydrocodone 5 mg-acetaminophen 325 1 tab PO Q4-6H PRN #10 tab 09/21/19 mg tablet ketorolac 10 mg tablet 10 mg PO Q6H PRN #14 tab 09/21/19 prednisone 20 mg tablet 40 mg PO DAILY #10 tab 04/23/21 sulfamethoxazole 800 1 tab PO BID 7 Days #14 tab 08/17/21 mg-trimethoprim 160 mg tablet (Bactrim DS) Allergies Allergy/AdvReac Type Severity Reaction Status Date / Time No Known Drug Allergies Allergy Verified 08/17/21 17:26 Review of Systems Review of Systems Narrative: GENERAL: Denies chills,fever HEENT: Denies throat pain RESPIRATORY: Denies dyspnea, cough, wheezing CARDIOVASCULAR: Denies chest pain, palpitations GASTROINTESTINAL: Denies nausea, vomiting MUSCULOSKELETAL: Denies extremity pain, injury SKIN: See HPI NEUROLOGIC: Denies weakness, dizziness, headache, numbness 8 point review of systems is negative except for those stated above and HPI Patient History Medical History (Updated 08/17/21 @ 20:34 by Enma Natarajan DO) Healthy adult Social History Smoking Status: Never smoker Smoking Status: Never smoker alcohol intake frequency: 0-2 drinks per day Substance Use Type: does not use Exam Initial Vital Signs Initial Vital Signs: Vital Signs Temperature 97.5 F L 08/17/21 17:16 Pulse Rate 56 L 08/17/21 17:16 Respiratory Rate 14 08/17/21 17:16 Blood Pressure 153/91 H 08/17/21 17:16 Pulse Oximetry 100 08/17/21 17:16 GENERAL: Well-appearing, well-nourished and in no acute distress. CARDIOVASCULAR: peripheral pulses intact, cap refill <2 sec RESPIRATORY: No respiratory distress, speaks in full sentences without difficulty EXTREMITIES: Normal range of motion, no clubbing or edema. Neurovascularly intact NEUROLOGICAL: Cranial nerves II through XII grossly intact. Normal gait and speech. SKIN: Left elbow just inferior 2 cm x 1 cm fluctuation with some swelling and around forearm as well minimal erythema Procedures Abscess I/D I&D #1: Side (if applicable): left Local Anesthetic: lidocaine 1% Amount of anesthesia used (mL): 2 Technique: incised with #11 blade Amount of fluid expressed (mL): 0 Irrigation: No Complications: bleeding Course Orders Ordered: ED Orders 08/17/21 20:24 Wound Culture and Gram Stain Stat Discontinued Medications Lidocaine HCl (Lidocaine 1% (Pf)) 2 ml SUBCUT NOW ONE Stop: 08/17/21 20:07 Last Admin: 08/17/21 20:26 Dose: 2 ml Documented by: SAEID Trimethoprim/Sulfamethoxazole (Trimeth/Sulfa 160/800 Prepack) 1 bottle MISC SEEINSTR ONE Stop: 08/17/21 20:37 Trimethoprim/Sulfamethoxazole (Trimeth/Sulfa 160/800 (Ds) Tablet) 1 tab PO NOW ONE Stop: 08/17/21 20:57 Last Admin: 08/17/21 20:59 Dose: 1 tab Documented by: SAMARA Vital Signs Vital signs: Vital Signs - 8 hr 08/17/21 20:39 Pulse Rate 60 Blood Pressure 133/94 H Pulse Oximetry 99 MDM - Skin/Abscess/Foreign Bdy Lab Data Result diagrams: 08/17/21 18:20 08/17/21 18:20 Labs: Lab Results 08/17/21 08/17/21 08/17/21 Range/Units 18:20 18:20 18:20 WBC 7.3 (4.5-11.0) X10^3/uL RBC 4.91 (4.5-5.9) X10^6/uL Hgb 15.1 (13.5-17.5) g/dL Hct 42.4 (41-53) % MCV 86.4 (80-100) fL MCH 30.8 (26-34) PG MCHC 35.6 (30-36) % RDW 13.5 (11.6-14.8) % Plt Count 210 (150-400) X10^3/uL Neut % (Auto) 62.4 (50-75) % Lymph % (Auto) 23.7 L (25-40) % [place] % (Auto) 5.9 (3-14) % Eos % (Auto) 6.8 H (2-4) % Baso % (Auto) 1.2 (0-2) % Neut # (Auto) 4600 (2319-9633) /uL Lymph # (Auto) 1700 (4633-0011) /uL [place] # (Auto) 400 (0-900) /uL Eos # (Auto) 500 H (0-450) /uL Baso # (Auto) 100 (0-100) /uL Sodium 136 L (137-145) mmol/L Potassium 3.7 (3.4-5.1) mmol/L Chloride 105 (98-107) mmol/L Carbon Dioxide 26 (22-32) mmol/L BUN 17 (9-20) mg/dL Creatinine 1.05 (0.66-1.25) mg/dL Estimated GFR > 60.0 (>60) mL/min BUN/Creatinine Ratio 16.2 (6-22) Glucose 134 H (70-100) mg/dL Lactate 1.5 (0.7-2.1) mmol/L Calcium 9.0 (8.4-10.2) mg/dL Total Bilirubin 0.4 (0.2-1.3) mg/dL AST 26 (17-59) IU/L ALT 28 (<50) IU/L Alkaline Phosphatase 53 (38-126) U/L Total Protein 7.6 (6.3-8.2) g/dL Albumin 4.2 (3.5-5.0) g/dL Globulin 3.4 (1.7-4.1) g/dL Albumin/Globulin Ratio 1.2 (1.0-2.8) MDM Narrative Medical decision making narrative: Patient had obvious fluctuation and some mild swelling and erythema up his left arm. All blood work is overall reassuring. Attempted I and D however note drainage blood only. Culture sent and pending. At this time recommend antibiotics. He said last time he had a staph infection he was given amoxicillin. He has no prior history of MRSA however will treat him for MRSA this time until culture returns Discharge Plan Departure Patient Disposition: Home Clinical Impression: Cellulitis, Abscess of skin or subcutaneous tissue Instructions: DI for Cellulitis -- Adult, DI for Skin Abscess Activity Restrictions/Additional Instructions: *You have been diagnosed with left elbow abscess and cellulitis *What to do: The try antibiotics for 2-3 days. For antibiotics need to be changed we will call you. *Continue to take medications as directed Bactrim 1 tablet twice a day for 7 days--> SENT TO [facility] IN [place] *Follow up with your primary care provider in 2-3 days or call [phone] *Return to ER if you should have increased redness pain swelling inability to bend the elbow numbness tingling or any new, worsening or concerning symptoms Prescriptions: New sulfamethoxazole-trimethoprim [Bactrim DS] 800-160 mg tablet 1 tab PO BID 7 Days Qty: 14 0RF No Action prednisone 20 mg tablet 40 mg PO DAILY Qty: 10 0RF prednisone 20 mg tablet 60 mg PO DAILY Qty: 12 0RF hydrocodone-acetaminophen 5-325 mg tablet 1 tab PO Q4-6H PRN (Reason: pain) Qty: 10 0RF ketorolac 10 mg tablet 10 mg PO Q6H PRN (Reason: pain) Qty: 14 0RF diazepam [Valium] 5 mg tablet 5 mg PO BID-QID PRN (Reason: muscle spasm) Qty: 10 0RF Referrals: Mirta Argueta PA-C [Primary Care Provider] -
[2021-08-17] MEDS: LIDOCAINE 1% (PF) 2 ML SUBCUT (20:26)
[2021-08-17 20:39] VITALS: BP 133/94; PULSE 60; O2SAT 99
[2021-08-17] MEDS: TRIMETH/SULFA 160/800 (DS) TABLET 1 TAB PO (20:59)
== END 2021-08-17 20:52 | disposition home or self-care (01) ==
PROVIDERS: Emergency Provider Emergency Medicine; PCP Physician Assistant Medical
DX: L03.114 Cellulitis of left upper limb (principal); L02.414 Cutaneous abscess of left upper limb
CPT/HCPCS: 10060; 80053; 83605; 85025; 87040; 87070; 87075; 87077; 87147; 87186; 87205; 99283